=== PATIENT | female | born 2005 | race Caucasian/White ===

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

== ENCOUNTER 2023-03-27 20:28 | Emergency (ER) | payer BC ==
[~2023-03-27] VITALS: Ht 157.4 cm; Wt 70.3 kg
[2023-03-27 21:34] LABS: BILIRUBIN Negative (Negative); BLOOD 2+ (Negative); CLARITY Turbid (Clear); COLOR Yellow (Yellow); GLUCOSE Negative (Negative); KETONE Negative (Negative); LEUKO ESTERASE 3+ (Negative); NITRITE Negative (Negative); UROBILINOGEN 0.2 E.U./dl (0.0-1.0)
[2023-03-27 21:45] LABS: WBC TNTC wbc/hpf (0-5)
[2023-03-27 21:46] LABS: BACTERIA 1+
[2023-03-27] MEDS ORDERED: MACROBID100 M1 PO (21:51)
== END 2023-03-27 22:15 | disposition home or self-care (01) ==
LOC: ED 20:28
PROVIDERS: Nurse Practitioner Family
DX: N39.0 Urinary tract infection, site not specified (principal); Z88.1 Allergy status to other antibiotic agents

== ENCOUNTER 2023-11-09 21:29 | Emergency (ER) | payer BC ==
[~2023-11-09] VITALS: Ht 157.4 cm; Wt 79.4 kg
[~2023-11-09 21:29] MED LIST changes: +MACROBID100 M1 PO
[2023-11-09] MEDS ORDERED: predniSONE 20 MG TAB PO ONE (21:50)
[2023-11-09] MEDS ORDERED: PREDNISONE50 MG PO (21:50)
== END 2023-11-09 21:58 | disposition home or self-care (01) ==
LOC: ED 21:29
DX: R21 Rash and other nonspecific skin eruption (principal); Z88.1 Allergy status to other antibiotic agents